=== PATIENT | female | born 1965 | race Hispanic/Latino ===

== ENCOUNTER 2024-05-29 11:18 | Day surgery (SDC) | payer OTHER ==
[~2024-05-29] VITALS: Ht 157.5 cm; Wt 59.0 kg
[~2024-05-29 11:18] MED LIST: CARAFATE1 GM PO; CETIRIZINE10 MG PO; LORTAB 1010 MG PO; LYRICA50 MG PO; METHOCARBAMOL500 MG PO; OXYBUTYNIN CHLOR5 M2 PO; PREVACID30 M3 PO
[2024-05-29] MEDS ORDERED: LACTATED RINGER'S 1,000 ML IV ONE (12:21)
[2024-05-29] MEDS ORDERED: FAMOTIDINE 10MG/ML 2ML SDV IV ONE (12:21)
[2024-05-29 14:13] VITALS: BP 135/81
[2024-05-29] MEDS ORDERED: PROPOFOL 200 MG/20 ML VIAL IV ONE (16:25)
[2024-05-29] MEDS ORDERED: LIDOCAINE HCL 2% 2ML SDV IV ONE (16:25)
[2024-05-29] MEDS ORDERED: GLYCOPYRROLATE 0.2 MG/ML IV ONE (16:25)
== END 2024-05-29 14:30 | disposition home or self-care (01) | DRG 392 ==
LOC: ENDO 11:18 → ORM 12:10 → ENDO 14:30 → ORM 15:05 → ENDO 16:10 → ORM 16:10
PROVIDERS: ATTEND Internal Medicine Gastroenterology
PROC: 0D738ZZ Dilation of Lower Esophagus, Via Natural or Artificial Opening Endoscopic (ICD-10-PCS; principal; 2024-05-29)
PROC: 0DB38ZX Excision of Lower Esophagus, Via Natural or Artificial Opening Endoscopic, Diagnostic (ICD-10-PCS; 2024-05-29)
PROC: 0DB78ZX Excision of Stomach, Pylorus, Via Natural or Artificial Opening Endoscopic, Diagnostic (ICD-10-PCS; 2024-05-29)
PROC: 0DB28ZX Excision of Middle Esophagus, Via Natural or Artificial Opening Endoscopic, Diagnostic (ICD-10-PCS; 2024-05-29)
DX: K22.2 Esophageal obstruction (principal); K29.50 Unspecified chronic gastritis without bleeding; K21.9 Gastro-esophageal reflux disease without esophagitis; K44.9 Diaphragmatic hernia without obstruction or gangrene; Z86.19 Personal history of other infectious and parasitic diseases